=== PATIENT | female | born 1975 | race Caucasian/White ===

== ENCOUNTER 2016-10-07 08:56 | Emergency (ER) | payer BC ==
[~2016-10-07 08:56] MED LIST: ALLE10TA11 PO; EXCETAB80 PO; INDE80CA PO; REME30TA PO; imitrex IM
--- NOTE | 2016-10-07 09:36 | EDDOCDS ---
Physician Documentation [facility] Name: Alyson Lozoya Age: 41 yrs Sex: Female : 1975 Arrival Date: 10/07/2016 Time: 08:56 Bed Triage 1 Private MD: Disposition: 10/07/16 09:28 Discharged to Home/Self Care. Impression: Acute maxillary sinusitis. - Condition is Stable. - Discharge Instructions: Sinusitis, Adult. - Prescriptions for Prednisone 20 mg Oral Tablet - take 1 tablet by ORAL route once daily for 5 days; 5 tablet. Bactrim DS 800- 160 mg Oral Tablet - take 1 tablet by ORAL route every 12 hours for 10 days; 20 tablet. - Medication Reconciliation form. - Follow up: Emergency Department; When: As needed; Reason: Worsening of conditions. Follow up: Private Physician; When: Call to arrange an appointment; Reason: Wound/Symptom Recheck, Recheck today's complaints, Continuance of care. - Problem is an ongoing problem. - Symptoms are unchanged. Historical: - Allergies: cats; - Home Meds: 1. Imitrex 6 mg/0.5 mL Sub-Q soln as needed 2. Claritin 10 mg Oral tab 1 tab once daily 3. Benadryl 25 mg Oral cap nightly - PMHx: Chronic sinus infections; Migraines; - PSHx: Tubal ligation; Cholecystectomy; ectopic ; - Social history: Smoking status: Patient states was never smoker of tobacco. No barriers to communication noted, The patient speaks fluent Hungarian, Speaks appropriately for age. - Family history: Not pertinent. - : The pt / caregiver states he / she is not on anticoagulants. Home medication list is obtained from the patient. - Exposure Risk Screening:: None identified. 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 4 in. (162.56 cm) (R); Pain 5/10; 09:08 Body Mass Index 31.75 (83.91 kg, 162.56 cm) mlb1 MDM: 09:34 [facility] Payment Agreement was scanned into [employer] and attached to record. hs2 09:34 Financial registration complete. hs2 Signatures: Tapan Chavez, RN RN Felton Perez, RN RN mlb1 Enrique March PA-C PA-C cc10 Demetra Perez, Reg Reg hs2 The chart was reviewed and I authenticate all verbal orders and agree with the evaluation and treatment provided.Attachments: 09:34 [facility] Payment Agreement hs2 MTDD
--- NOTE | 2016-10-07 09:36 | EDDOCDS ---
Nurse's Notes [facility] [place] Name: Alyson Lozoya Age: 41 yrs Sex: Female : 1975 Arrival Date: 10/07/2016 Time: 08:56 Bed Triage 1 Private MD: Diagnosis: Acute maxillary sinusitis Presentation: 10/07 09:06 Presenting complaint: Patient states: Sinus pain and pressure began a week ago. Adult mlb1 Sepsis Screening: The patient does not have new or worsening altered mentation. Patient's respiratory rate is less than 22. Systolic blood pressure is greater than 100. Patient has a qSOFA score of 0- Negative Sepsis Screen. Suicide/Homicide risk assessment- the patient denies having any suicidal and/or homicidal ideations and does not present with any other emotional, behavioral or mental health complaints. Status: Patient is not a social service worker or dependent. Transition of care: patient was not received from another setting of care. 09:06 Acuity: FAITH Level 4 mlb1 09:06 Method Of Arrival: Walkin/Carried/Asstd mlb1 Triage Assessment: 09:08 General: Appears in no apparent distress, Behavior is appropriate for age, cooperative. mlb1 Pain: Location: forehead, right cheek and left cheek Pain currently is 5 out of 10 on a pain scale. HIV screening NA for this visit Offered previously. 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 Imitrex 6 mg/0.5 mL Sub-Q soln as needed 2. Claritin 10 mg Oral tab 1 tab once daily 3. Benadryl 25 mg Oral cap nightly - PMHx: Chronic sinus infections; Migraines; - PSHx: Tubal ligation; Cholecystectomy; ectopic ; - Social history: Smoking status: Patient states was never smoker of tobacco. No barriers to communication noted, The patient speaks fluent Kazakh, Speaks appropriately for age. - Family history: Not pertinent. - : The pt / caregiver states he / she is not on anticoagulants. Home medication list is obtained from the patient. - Exposure Risk Screening:: None identified. Screenin:22 Screening information is obtained from the patient. Fall risk: No risks identified. mlb1 Assistance ADL's: requires no assistance with activities of daily living. Abuse/DV Screen: The patient / caregiver reports he/she is: not in a situation that causes fear, pain or injury. Nutritional screening: No deficits noted. Advance Directives: Currently, there is no health care proxy. home support is adequate. Assessment: 09:34 The patient / caregiver is instructed regarding the plan of care and ED course. [facility] Physical assessment to be completed by DELANO/DIONNE. Vital Signs: 09:08 BP 122 / 73; Pulse 82; Resp 16; Temp 99.0(TE); Pulse Ox 98% on R/A; Weight 83.91 kg mlb1 (R); Height 5 ft. 4 in. (162.56 cm) (R); Pain 5/10; 09:08 Body Mass Index 31.75 (83.91 kg, 162.56 cm) mlb1 Vitals: 09:08 Log In Time: October 07, 2016 at 09:00. mlb1 ED Course: 08:58 Patient visited by Florencio Hernandez. jp5 08:58 Patient moved to Waiting jp5 08:59 Enrique March [facility] cc10 08:59 Dar Vee MD is Attending Physician. cc10 09:07 Triage Initiated mlb1 09:07 Patient moved to Triage 1 cc10 09:09 Patient visited by Felton Romero RN. mlb1 09:10 Patient visited by Enrique March PA-C. cc10 09:10 Patient visited by Enrique March PA-C. cc10 09:23 The patient / caregiver is instructed regarding the plan of care and ED course. mlb1 09:23 No IV's were initiated during this patient's visit. No procedures done that require mlb1 assistance. 09:34 [facility] Payment Agreement was scanned into [employer] and attached to record. hs2 09:35 Patient has correct armband on for positive identification. dwg Order Results: There are currently no results for this order. Outcome: 09:28 Discharge ordered by Provider. cc10 09:34 The following High Risk Discharge criteria are identified: None. Discharged to home dwg ambulatory, with family. Condition: good Condition: stable. No special radiology studies were completed. 09:35 Discharge Assessment: patient administered narcotics - no. Property sent home with dwg patient. 09:35 Patient left the ED. dwg Signatures: Tapan Chavez, RN RN dwg Felton Romero RN RN mlb1 Enrique March, NEW PAKevenC cc10 Florencio Hernandez jp5 Demetra Perez, Reg Reg hs2 MTDD
--- NOTE | 2016-10-09 10:36 | EDDOCDS ---
Physician Documentation [facility] Name: Alyson Lozoya Age: 41 yrs Sex: Female : 1975 Arrival Date: 10/07/2016 Time: 08:56 Bed Triage 1 Private MD: Disposition: 10/07/16 09:28 Discharged to Home/Self Care. Impression: Acute maxillary sinusitis. - Condition is Stable. - Discharge Instructions: Sinusitis, Adult. - Prescriptions for Prednisone 20 mg Oral Tablet - take 1 tablet by ORAL route once daily for 5 days; 5 tablet. Bactrim DS 800- 160 mg Oral Tablet - take 1 tablet by ORAL route every 12 hours for 10 days; 20 tablet. - Medication Reconciliation form. - Follow up: Emergency Department; When: As needed; Reason: Worsening of conditions. Follow up: Private Physician; When: Call to arrange an appointment; Reason: Wound/Symptom Recheck, Recheck today's complaints, Continuance of care. - Problem is an ongoing problem. - Symptoms are unchanged. Historical: - Allergies: cats; - Home Meds: 1. Imitrex 6 mg/0.5 mL Sub-Q soln as needed 2. Claritin 10 mg Oral tab 1 tab once daily 3. Benadryl 25 mg Oral cap nightly - PMHx: Chronic sinus infections; Migraines; - PSHx: Tubal ligation; Cholecystectomy; ectopic ; - Social history: Smoking status: Patient states was never smoker of tobacco. No barriers to communication noted, The patient speaks fluent Belarusian, Speaks appropriately for age. - Family history: Not pertinent. - : The pt / caregiver states he / she is not on anticoagulants. Home medication list is obtained from the patient. - Exposure Risk Screening:: None identified. COMPLIANCE SPEC: 10/07 09:08 LMP 09/30/2016 mlb1 Vital Signs: 09:08 BP 122 / 73; Pulse 82; Resp 16; Temp 99.0(TE); Pulse Ox 98% on R/A; Weight 83.91 kg / mlb1 184.99 lbs (R); Height 5 ft. 4 in. (162.56 cm) (R); Pain 5/10; 09:08 Body Mass Index 31.75 (83.91 kg, 162.56 cm) mlb1 MDM: 09:34 [facility] Payment Agreement was scanned into [employer] and attached to record. hs2 09:34 Financial registration complete. hs2 13:32 T-Sheet-- Draft Copy was scanned into [employer] and attached to record. [facility] Signatures: Tapan Chavez RN RN Felton Perez RN RN mlb1 Enrique March PA-C PAOmer cc10 Demetra Perez, Reg Reg hs2 Zulema Valle [facility] The chart was reviewed and I authenticate all verbal orders and agree with the evaluation and treatment provided.Attachments: 09:34 [facility] Payment Agreement hs2 13:32 T-Sheet-- Draft Copy [facility] Chart Complete MTDD
--- NOTE | 2016-10-09 10:36 | EDDOCDS ---
Nurse's Notes [facility] Name: Alyson Lozoya Age: 41 yrs Sex: Female : 1975 Arrival Date: 10/07/2016 Time: 08:56 Bed Triage 1 Private MD: Diagnosis: Acute maxillary sinusitis Presentation: 10/07 09:06 Presenting complaint: Patient states: Sinus pain and pressure began a week ago. Adult mlb1 Sepsis Screening: The patient does not have new or worsening altered mentation. Patient's respiratory rate is less than 22. Systolic blood pressure is greater than 100. Patient has a qSOFA score of 0- Negative Sepsis Screen. Suicide/Homicide risk assessment- the patient denies having any suicidal and/or homicidal ideations and does not present with any other emotional, behavioral or mental health complaints. Status: Patient is not a steam service inspector or dependent. Transition of care: patient was not received from another setting of care. 09:06 Acuity: FAITH Level 4 mlb1 09:06 Method Of Arrival: Walkin/Carried/Asstd mlb1 Triage Assessment: 09:08 General: Appears in no apparent distress, Behavior is appropriate for age, cooperative. mlb1 Pain: Location: forehead, right cheek and left cheek Pain currently is 5 out of 10 on a pain scale. HIV screening NA for this visit Offered previously. 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 Imitrex 6 mg/0.5 mL Sub-Q soln as needed 2. Claritin 10 mg Oral tab 1 tab once daily 3. Benadryl 25 mg Oral cap nightly - PMHx: Chronic sinus infections; Migraines; - PSHx: Tubal ligation; Cholecystectomy; ectopic ; - Social history: Smoking status: Patient states was never smoker of tobacco. No barriers to communication noted, The patient speaks fluent Cypriot, Speaks appropriately for age. - Family history: Not pertinent. - : The pt / caregiver states he / she is not on anticoagulants. Home medication list is obtained from the patient. - Exposure Risk Screening:: None identified. Screenin:22 Screening information is obtained from the patient. Fall risk: No risks identified. mlb1 Assistance ADL's: requires no assistance with activities of daily living. Abuse/DV Screen: The patient / caregiver reports he/she is: not in a situation that causes fear, pain or injury. Nutritional screening: No deficits noted. Advance Directives: Currently, there is no health care proxy. home support is adequate. Assessment: 09:34 The patient / caregiver is instructed regarding the plan of care and ED course. [facility] Physical assessment to be completed by DELANO/DIONNE. Vital Signs: 09:08 BP 122 / 73; Pulse 82; Resp 16; Temp 99.0(TE); Pulse Ox 98% on R/A; Weight 83.91 kg mlb1 (R); Height 5 ft. 4 in. (162.56 cm) (R); Pain 5/10; 09:08 Body Mass Index 31.75 (83.91 kg, 162.56 cm) mlb1 Vitals: 09:08 Log In Time: October 07, 2016 at 09:00. mlb1 ED Course: 08:58 Patient visited by Florencio Hernandez. jp5 08:58 Patient moved to Waiting jp5 08:59 Enrique March [facility]-C [facility] cc10 08:59 Dar Vee MD is Attending Physician. cc10 09:07 Triage Initiated mlb1 09:07 Patient moved to Triage 1 cc10 09:09 Patient visited by Felton Romero RN. mlb1 09:10 Patient visited by Enrique March PA-C. cc10 09:10 Patient visited by Enrique March PA-C. cc10 09:23 The patient / caregiver is instructed regarding the plan of care and ED course. mlb1 09:23 No IV's were initiated during this patient's visit. No procedures done that require mlb1 assistance. 09:34 [facility] Payment Agreement was scanned into [employer] and attached to record. hs2 09:35 Patient has correct armband on for positive identification. [facility] 13:32 T-Sheet-- Draft Copy was scanned into [employer] and attached to record. [facility] Order Results: There are currently no results for this order. Outcome: 09:28 Discharge ordered by Provider. cc10 09:34 The following High Risk Discharge criteria are identified: None. Discharged to home dwg ambulatory, with family. Condition: good Condition: stable. No special radiology studies were completed. 09:35 Discharge Assessment: patient administered narcotics - no. Property sent home with [facility] patient. 09:35 Patient left the ED. [facility] Signatures: Tapan Chavez, RN RN Felton Perez RN RN mlb1 Enrique March PA-C PAOmer cc10 Florencio Hernandez jp5 Demetra Perez, Reg Reg hs2 Tori, Zulema Chart Complete MTDD
--- NOTE | 2016-10-09 10:36 | EDDOCDS ---
Physician Documentation [facility] Name: Alyson Lozoya Age: 41 yrs Sex: Female : 1975 Arrival Date: 10/07/2016 Time: 08:56 Bed Triage 1 Private MD: Disposition: 10/07/16 09:28 Discharged to Home/Self Care. Impression: Acute maxillary sinusitis. - Condition is Stable. - Discharge Instructions: Sinusitis, Adult. - Prescriptions for Prednisone 20 mg Oral Tablet - take 1 tablet by ORAL route once daily for 5 days; 5 tablet. Bactrim DS 800- 160 mg Oral Tablet - take 1 tablet by ORAL route every 12 hours for 10 days; 20 tablet. - Medication Reconciliation form. - Follow up: Emergency Department; When: As needed; Reason: Worsening of conditions. Follow up: Private Physician; When: Call to arrange an appointment; Reason: Wound/Symptom Recheck, Recheck today's complaints, Continuance of care. - Problem is an ongoing problem. - Symptoms are unchanged. Historical: - Allergies: cats; - Home Meds: 1. Imitrex 6 mg/0.5 mL Sub-Q soln as needed 2. Claritin 10 mg Oral tab 1 tab once daily 3. Benadryl 25 mg Oral cap nightly - PMHx: Chronic sinus infections; Migraines; - PSHx: Tubal ligation; Cholecystectomy; ectopic ; - Social history: Smoking status: Patient states was never smoker of tobacco. No barriers to communication noted, The patient speaks fluent Pashto, Speaks appropriately for age. - Family history: Not pertinent. - : The pt / caregiver states he / she is not on anticoagulants. Home medication list is obtained from the patient. - Exposure Risk Screening:: None identified. 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 4 in. (162.56 cm) (R); Pain 5/10; 09:08 Body Mass Index 31.75 (83.91 kg, 162.56 cm) mlb1 MDM: 09:34 [facility] Payment Agreement was scanned into [employer] and attached to record. hs2 09:34 Financial registration complete. hs2 13:32 T-Sheet-- Draft Copy was scanned into [employer] and attached to record. [facility] Signatures: Tapan Chavez RN RN Felton Perez RN RN mlb1 Enrique March PA-C PAOmer cc10 Demetra Perez, Reg Reg hs2 Zulema Valle [facility] The chart was reviewed and I authenticate all verbal orders and agree with the evaluation and treatment provided.Attachments: 09:34 [facility] Payment Agreement hs2 13:32 T-Sheet-- Draft Copy [facility] Chart Complete MTDD
== END 2016-10-07 09:35 | disposition home or self-care (01) ==
LOC: M ED 08:56
DX: J32.9 Chronic sinusitis, unspecified (principal); G43.909 Migraine, unspecified, not intractable, without status migrainosus; Z79.899 Other long term (current) drug therapy; J30.81 Allergic rhinitis due to animal (cat) (dog) hair and dander

== ENCOUNTER 2016-11-07 18:08 | Emergency (ER) | payer BC ==
[~2016-11-07] VITALS: Ht 162.6 cm; Wt 83.9 kg
[2016-11-07] MEDS ORDERED: IMIT6INJ SC (18:35)
[2016-11-07] MEDS ORDERED: KETOROLAC 60 MG/2 ML VIAL (J1885) IM ONE (21:45)
[2016-11-07 23:06] VITALS: BP 117/74
== END 2016-11-07 23:20 | disposition home or self-care (01) ==
LOC: M ED 19:23
DX: B34.9 Viral infection, unspecified (principal); J02.0 Streptococcal pharyngitis; F41.9 Anxiety disorder, unspecified; J30.81 Allergic rhinitis due to animal (cat) (dog) hair and dander
CPT/HCPCS: 87804; 87880; 96372; 99282; J1885

== ENCOUNTER → 2017-06-27 | Outpatient (CLI) | payer BC ==
[~2017-06-27] MED LIST changes: +IMIT6INJ SC
[2017-06-27 10:47] LABS: MEAN CORPUSCULAR HEMOGLOBIN 31.2 pg (27.0-33.0); MEAN CORPUSCULAR HGB CONC 33.1 g/dl (32.0-36.5); MEAN CORPUSCULAR VOLUME 94.3 fl (80.0-96.0); PLATELET COUNT, AUTOMATED 309 10^3/uL (150-450); WHITE BLOOD COUNT 7.5 10^3/uL (4.0-10.0)
--- NOTE | 2017-06-27 11:10 | REP ---
Clinical: Hypertension . Comparison: 11/03/2015 . Technique: PA and lateral. Findings: The mediastinum and cardiac silhouette are normal. The lung blakely are clear and without acute consolidation, effusion, or pneumothorax. The skeletal structures are intact and normal. Impression: 1. No acute cardiopulmonary process. Signed by Jayson Franco MD 06/27/2017 11:01 A
--- NOTE | 2017-06-27 11:29 | REP ---
Clinical: Pain. Comparison: 07/29/2005 . Technique: AP, lateral, flexion/extension, bilateral oblique, swimmers and open-mouth views. Findings: Alignment and lordosis is maintained. There is no evidence for acute fracture / compression injury or subluxation. No significant degenerative changes are appreciated. Oblique views demonstrate patent neural foramen. Open mouth view demonstrates normal C1-C2 articulation and odontoid process. Impression: Normal, age-appropriate cervical spine series. Signed by Jayson Franco MD 06/27/2017 11:21 A
[2017-06-27 11:30] LABS: ALBUMIN 3.6 GM/DL (3.2-5.2); ALBUMIN/GLOBULIN RATIO 1.03 (1.00-1.93); ALKALINE PHOSPHATASE 72 U/L (45-117); ALT/SGPT 40 U/L (12-78); ANION GAP 8 MEQ/L (8-16); AST/SGOT 20 U/L (7-37); BILIRUBIN,TOTAL 0.3 MG/DL (0.2-1.0); BLOOD UREA NITROGEN 13 MG/DL (7-18); CALCIUM LEVEL 8.4 MG/DL (8.5-10.1); CARBON DIOXIDE LEVEL 27 MEQ/L (21-32); CHLORIDE LEVEL 106 MEQ/L (98-107); CHOLESTEROL LEVEL 174 MG/DL (<200); CREATININE FOR GFR 0.55 MG/DL (0.55-1.02); GLOMERULAR FILTRATION RATE > 60.0 (>58); GLUCOSE, FASTING 111 MG/DL (70-105); SODIUM LEVEL 141 MEQ/L (136-145); THYROXINE (T4) 11.6 UG/DL (4.5-12.0); TOTAL PROTEIN 7.1 GM/DL (6.4-8.2); TRIGLYCERIDES LEVEL 134 MG/DL (<150)
--- NOTE | 2017-06-28 13:36 | ECGEPIP ---
Stationary ECG Study [facility] Test Date: 2017-06-27 Pat Name: GRACIELA KEARNEY Department: Room: - Gender: F Training Administrator: COLLIN : 1975 Requested By: Spencer Helms Order Number: [id number] Reading MD: Feliciano Beard Measurements Intervals Nesbit Rate: 66 P: 30 WV: 192 QRS: 20 QRSD: 87 T: 43 QT: 386 QTc: 405 Interpretive Statements SINUS RHYTHM Q WAVE NOTED IN THE INFERIOR LEADS Prior tracing on 07/26/2013 at 11:19:48. Sinus tachycardia was then noted Electronically Signed On 06-28-2017 13:35:53 EST by Feliciano Beard
== END ==
LOC: M LAB 10:14
PROVIDERS: ATTEND Family Medicine
DX: I10 Essential (primary) hypertension (principal)

== ENCOUNTER 2018-05-26 13:28 | Emergency (ER) | payer OTHER | END 2018-05-26 15:35 | disposition home or self-care (01) | LOC: M ED 13:28 | DX: Z00.00 Encounter for general adult medical examination without abnormal findings (principal); A48.8 Other specified bacterial diseases; G43.909 Migraine, unspecified, not intractable, without status migrainosus; K44.9 Diaphragmatic hernia without obstruction or gangrene | CPT/HCPCS: 99283 ==

== ENCOUNTER 2018-06-04 17:26 | Emergency (ER) | payer OTHER ==
[2018-06-04] MEDS: KETOROLAC 60 MG/2 ML VIAL (J1885) IM (21:15)
== END 2018-06-04 21:34 | disposition home or self-care (01) ==
LOC: M ED 17:26
DX: S96.912A Strain of unspecified muscle and tendon at ankle and foot level, left foot, initial encounter (principal); X50.1XXA Overexertion from prolonged static or awkward postures, initial encounter; Y92.9 Unspecified place or not applicable; Y93.9 Activity, unspecified; Y99.0 Civilian activity done for income or pay; I10 Essential (primary) hypertension; G43.909 Migraine, unspecified, not intractable, without status migrainosus; J30.89 Other allergic rhinitis
CPT/HCPCS: J1885

== ENCOUNTER → 2019-12-22 | Outpatient (CLI) | payer BC ==
[~2019-12-22] MED LIST changes: +NAPR-837 PO; +PROZ10CA7 PO
== END ==
LOC: M LABSMTC 13:19
PROVIDERS: ATTEND Family Medicine
DX: Z11.59 Encounter for screening for other viral diseases (principal); Z20.828 Contact with and (suspected) exposure to other viral communicable diseases
CPT/HCPCS: C9803; U0003

== ENCOUNTER 2020-06-07 20:41 | Emergency (ER) | payer BC ==
[~2020-06-07] VITALS: Ht 162.6 cm; Wt 94.2 kg
[~2020-06-07 20:41] MED LIST changes: -PROZ10CA7 PO
[2020-06-07 20:42] VITALS: BP 138/64
[2020-06-07] MEDS ORDERED: PROZ10CA7 PO (20:50)
[2020-06-07] MEDS ORDERED: BOOSTRIX/ADACEL VACCINE (DIPHTH/PERTUSS/ACELL/TETANUS) 0.5ML SYR IM ONE (21:00)
[2020-06-07] MEDS ORDERED: LIDOCAINE 2% MDV 20ML VIAL SC ONE (21:00)
== END 2020-06-07 22:03 | disposition home or self-care (01) ==
LOC: M ED 20:41
DX: S61.411A Laceration without foreign body of right hand, initial encounter (principal); W26.8XXA Contact with other sharp object(s), not elsewhere classified, initial encounter; Y92.090 Kitchen in other non-institutional residence as the place of occurrence of the external cause; Y93.G1 Activity, food preparation and clean up; Y99.8 Other external cause status; G43.909 Migraine, unspecified, not intractable, without status migrainosus; F41.9 Anxiety disorder, unspecified; F32.9 Major depressive disorder, single episode, unspecified; K44.9 Diaphragmatic hernia without obstruction or gangrene; J30.81 Allergic rhinitis due to animal (cat) (dog) hair and dander; Z79.899 Other long term (current) drug therapy; Z79.1 Long term (current) use of non-steroidal anti-inflammatories (NSAID); Z23 Encounter for immunization

== ENCOUNTER → 2020-09-20 | Outpatient (CLI) | payer SELFPAY ==
[~2020-09-20] MED LIST changes: +PROZ10CA7 PO
== END ==
LOC: M LABSMTC 09:46
PROVIDERS: ATTEND Pediatrics
DX: Z20.828 Contact with and (suspected) exposure to other viral communicable diseases (principal)

== ENCOUNTER → 2021-08-07 | Outpatient (CLI) | payer MEDICAID | LOC: M LABSMTC 13:14 | PROVIDERS: ATTEND Pediatrics | DX: Z11.52 Encounter for screening for COVID-19 (principal) ==

== ENCOUNTER 2022-06-12 11:19 | Emergency (ER) | payer BC, MEDICAID ==
[~2022-06-12] VITALS: Ht 162.6 cm; Wt 92.7 kg
[2022-06-12 14:20] LABS: BASO % 0.2 % (0.0-1.0); HEMATOCRIT 38.5 % (36.0-47.0); HEMOGLOBIN 12.9 g/dl (12.0-15.5); LYMPH # 0.6 10^3/uL (1.5-5.0); LYMPH % 5.8 % (24.0-44.0); MEAN CORPUSCULAR HEMOGLOBIN 31.6 pg (27.0-33.0); MEAN CORPUSCULAR HGB CONC 33.5 g/dl (32.0-36.5); MEAN CORPUSCULAR VOLUME 94.4 fl (80.0-96.0); MONO # 0.4 10^3/uL (0.0-0.8); MONO % 3.7 % (2.0-8.0); NEUTROPHILS # 9.3 10^3/uL (1.5-8.5); NEUTROPHILS % 89.1 % (36.0-66.0); PLATELET COUNT, AUTOMATED 201 10^3/uL (150-450); RED BLOOD COUNT 4.08 10^6/uL (4.00-5.40); WHITE BLOOD COUNT 10.4 10^3/uL (4.0-10.0)
[2022-06-12 14:54] LABS: BLOOD UREA NITROGEN 15 MG/DL (7-18); CALCIUM LEVEL 9.2 MG/DL (8.5-10.1); CARBON DIOXIDE LEVEL 25 MEQ/L (21-32); CHLORIDE LEVEL 100 MEQ/L (98-107); CREATININE FOR GFR 0.86 MG/DL (0.55-1.30); GLOMERULAR FILTRATION RATE > 60.0 (>58); GLUCOSE, FASTING 130 MG/DL (70-100); POTASSIUM SERUM 3.7 MEQ/L (3.5-5.1); SODIUM LEVEL 134 MEQ/L (136-145)
[2022-06-12 15:33] VITALS: BP 131/67
[2022-06-12] MEDS ORDERED: KETOROLAC TROMETHAMINE 10 MG TAB PO ONE (18:20)
[2022-06-12] MEDS ORDERED: KETO10TAB PO ×2 (18:22→19:16)
[2022-06-12] MEDS ORDERED: FLON27.5 NARES ×2 (18:22→19:16)
[2022-06-12] MEDS ORDERED: AMOX875T2 PO ×2 (18:22→19:16)
== END 2022-06-12 18:44 | disposition home or self-care (01) ==
LOC: M ED 11:19
DX: J01.40 Acute pansinusitis, unspecified (principal); R05.9 Cough, unspecified; G43.909 Migraine, unspecified, not intractable, without status migrainosus; E66.9 Obesity, unspecified; F32.A Depression, unspecified; F41.9 Anxiety disorder, unspecified; J30.81 Allergic rhinitis due to animal (cat) (dog) hair and dander; Z79.899 Other long term (current) drug therapy

== ENCOUNTER → 2022-06-22 | Outpatient (REF) | payer BC ==
[~2022-06-22] MED LIST changes: +AMOX875T2 PO; +FLON27.5 NARES; +KETO10TAB PO
== END ==
LOC: M SFHCPLAZ 14:15
PROVIDERS: ATTEND Family Medicine
DX: Z12.11 Encounter for screening for malignant neoplasm of colon (principal); R73.03 Prediabetes; Z83.49 Family history of other endocrine, nutritional and metabolic diseases; K59.00 Constipation, unspecified; E66.9 Obesity, unspecified

== ENCOUNTER → 2022-06-27 | Outpatient (REF) | payer BC ==
[2022-06-27 16:26] LABS: ALT/SGPT 44 U/L (7.0-40); BILIRUBIN,TOTAL 0.3 MG/DL (0.3-1.2); BLOOD UREA NITROGEN 14 MG/DL (9-23); CARBON DIOXIDE LEVEL 24 MMOL/L (20-31); CHLORIDE LEVEL 105 MMOL/L (98-107); CHOLESTEROL LEVEL 177 MG/DL (<200); CHOLESTEROL RISK RATIO 4.49 (<5); CREATININE FOR GFR 0.54 MG/DL (0.55-1.30); GLOMERULAR FILTRATION RATE > 60.0 (>58); GLUCOSE, FASTING 91 MG/DL (60-100); HDL CHOLESTEROL 39.4 MG/DL (>40); LDL CHOLESTEROL 112.8 MG/DL (<100); NON-HDL-C 138 MG/DL; POTASSIUM SERUM 4.7 MMOL/L (3.5-5.1); SODIUM LEVEL 139 MMOL/L (136-145); TRIGLYCERIDES LEVEL 124 MG/DL (<150)
[2022-06-27 16:48] LABS: CALCIUM LEVEL 9.9 MG/DL (8.5-10.1)
[2022-06-27 17:25] LABS: HEMOGLOBIN A1c 5.2 % (4.0-6.0)
== END ==
LOC: M SFHCPLAZ 10:02
PROVIDERS: ATTEND Family Medicine
DX: Z12.11 Encounter for screening for malignant neoplasm of colon (principal); R73.03 Prediabetes; Z83.49 Family history of other endocrine, nutritional and metabolic diseases; K59.00 Constipation, unspecified; E66.9 Obesity, unspecified

== ENCOUNTER → 2022-09-14 | Outpatient (REF) | payer BC | LOC: M SFHCPLAZ 16:44 | PROVIDERS: ATTEND Physician Assistant | DX: J01.90 Acute sinusitis, unspecified (principal) ==

== ENCOUNTER → 2022-10-17 | Outpatient (CLI) | payer BC | LOC: M PLAIMG 16:44 | PROVIDERS: ATTEND Physician Assistant | DX: M25.511 Pain in right shoulder (principal) ==

== ENCOUNTER → 2022-11-02 | Outpatient (CLI) | payer BC | LOC: M PLARAD 09:44 | PROVIDERS: ATTEND Physician Assistant | DX: M25.571 Pain in right ankle and joints of right foot (principal) ==

== ENCOUNTER 2023-02-04 01:53 | Emergency (ER) | payer BC ==
[~2023-02-04] VITALS: Ht 162.6 cm; Wt 83.5 kg
[2023-02-04] MEDS ORDERED: DOXY100C3 (02:05)
[2023-02-04] MEDS ORDERED: SEMA2PEN (02:05)
[2023-02-04] MEDS ORDERED: CELE1CAP9 (02:05)
[2023-02-04] MEDS ORDERED: METOCLOPRAMIDE INJ 10MG/2ML VIAL IV ONE (03:20)
[2023-02-04] MEDS ORDERED: KETOROLAC 30 MG/ML 1ML VIAL IV ONE (03:20)
[2023-02-04] MEDS ORDERED: diphenhydrAMINE 50MG/ML VIAL IV ONE (03:20)
[2023-02-04] MEDS ORDERED: ACETAMINOPHEN 1000MG 100ML IV BAG IV ONE (03:20)
[2023-02-04] MEDS ORDERED: NS 1,000 ML IV ONE (03:20)
[2023-02-04] MEDS ORDERED: VALPROATE SOD INJ 1,000 MG in D5W 50 ML IV ONE (04:50)
[2023-02-04] MEDS ORDERED: MORPHINE 4 MG/ML 1ML VIAL IV PRN (06:45)
[2023-02-04] MEDS ORDERED: MAG SULF 1GM/100ML (MAG RUN) 1 GM in IV 1 EA IV ONE (07:55)
[2023-02-04] MEDS ORDERED: SUCRALFATE SUSP 1GM/10ML UD PO ONE (09:55)
[2023-02-04 10:30] VITALS: BP 104/54; TEMP 97.4; O2SAT 96
== END 2023-02-04 10:49 | disposition home or self-care (01) ==
LOC: M ED 01:53
DX: G43.909 Migraine, unspecified, not intractable, without status migrainosus (principal); K59.00 Constipation, unspecified; R73.01 Impaired fasting glucose; Z79.899 Other long term (current) drug therapy
CPT/HCPCS: 96365; 96366; 96367; 96375; 99284; J0131; J1100; J1200; J1885; J2765; J3475

== ENCOUNTER → 2023-03-07 | Outpatient (CLI) | payer BC ==
[~2023-03-07] MED LIST changes: +CELE1CAP9; +DOXY100C3; +SEMA2PEN
[2023-03-07 10:57] LABS: APPEARANCE, URINE CLEAR (CLEAR); BACTERIA, URINE AUTO NEGATIVE (NEGATIVE); BILIRUBIN, URINE AUTO NEGATIVE (NEGATIVE); BLOOD, URINE BLOOD 1+ (NEGATIVE); COLOR, URINE YELLOW (YELLOW); GLUCOSE, URINE (UA) AUTO NEGATIVE (NEGATIVE); KETONE, URINE AUTO NEGATIVE (NEGATIVE); LEUKOCYTE ESTERASE, URINE AUTO NEGATIVE (NEGATIVE); NITRITE, URINE AUTO NEGATIVE (NEGATIVE); PROTEIN, URINE AUTO NEGATIVE (NEGATIVE); RBC, URINE AUTO 2 /HPF (0-3); SPECIFIC GRAVITY URINE AUTO 1.018 (1.002-1.035); UROBILINOGEN, URINE AUTO 0.2 mg/dL (0.0-2.0); WBC, URINE AUTO 0 /HPF (0-3)
[2023-03-07 10:58] LABS: MUCUS, URINE SMALL (NEGATIVE); SQUAMOUS EPITHELIAL CELL UR AU 3 /HPF (0-6)
[2023-03-07 11:05] LABS: BASO % 0.4 % (0.0-1.0); EOS # 0.1 10^3/uL (0.0-0.5); EOS % 1.4 % (0.0-3.0); HEMATOCRIT 36.5 % (36.0-47.0); HEMOGLOBIN 11.9 g/dl (12.0-15.5); LYMPH % 22.1 % (24.0-44.0); MEAN CORPUSCULAR HEMOGLOBIN 31.1 pg (27.0-33.0); MEAN CORPUSCULAR HGB CONC 32.6 g/dl (32.0-36.5); MEAN CORPUSCULAR VOLUME 95.3 fl (80.0-96.0); MONO # 0.9 10^3/uL (0.0-0.8); MONO % 9.9 % (2.0-8.0); NEUTROPHILS % 65.8 % (36.0-66.0); PLATELET COUNT, AUTOMATED 314 10^3/uL (150-450); RED BLOOD COUNT 3.83 10^6/uL (4.00-5.40); WHITE BLOOD COUNT 9.2 10^3/uL (4.0-10.0)
[2023-03-07 11:21] LABS: INR 0.86; PARTIAL THROMBOPLASTIN TIME 27.5 SECONDS (24.8-34.2); PROTHROMBIN TIME 11.9 SECONDS (12.5-14.5)
[2023-03-07 11:24] LABS: ALBUMIN 3.8 G/DL (3.2-5.2); ALKALINE PHOSPHATASE 87 U/L (46-116); ALT/SGPT 32 U/L (7.0-40); AST/SGOT 15 U/L (<34); BILIRUBIN,TOTAL 0.6 MG/DL (0.3-1.2); BLOOD UREA NITROGEN 13 MG/DL (9-23); CALCIUM LEVEL 8.8 MG/DL (8.5-10.1); CARBON DIOXIDE LEVEL 26 MMOL/L (20-31); CHLORIDE LEVEL 105 MMOL/L (98-107); CREATININE FOR GFR 0.59 MG/DL (0.55-1.30); GLOMERULAR FILTRATION RATE > 60.0 (>51); GLUCOSE, FASTING 71 MG/DL (60-100); POTASSIUM SERUM 3.8 MMOL/L (3.5-5.1); SODIUM LEVEL 140 MMOL/L (136-145); TOTAL PROTEIN 6.8 G/DL (5.7-8.2)
== END ==
LOC: M PLALAB 09:05
PROVIDERS: ATTEND Family Medicine
DX: Z01.810 Encounter for preprocedural cardiovascular examination (principal)

== ENCOUNTER → 2023-10-02 | Outpatient (CLI) | payer BC ==
[~2023-10-02] MED LIST changes: +CELE0.09; -CELE1CAP9
== END ==
LOC: M WHC 07:29
PROVIDERS: ATTEND Family Medicine
DX: Z12.31 Encounter for screening mammogram for malignant neoplasm of breast (principal)

== ENCOUNTER → 2023-11-05 | Outpatient (CLI) | payer BC ==
[2023-11-05 19:12] LABS: ALKALINE PHOSPHATASE 79 U/L (46-116); ALT/SGPT 34 U/L (7.0-40); AST/SGOT 21 U/L (<34); BILIRUBIN,TOTAL 0.4 MG/DL (0.3-1.2); BLOOD UREA NITROGEN 15 MG/DL (9-23); CALCIUM LEVEL 9.7 MG/DL (8.5-10.1); CARBON DIOXIDE LEVEL 28 MMOL/L (20-31); CHLORIDE LEVEL 107 MMOL/L (98-107); CHOLESTEROL LEVEL 160 MG/DL (<200); CHOLESTEROL RISK RATIO 4.12 (<5); CREATININE FOR GFR 0.66 MG/DL (0.55-1.30); GLOMERULAR FILTRATION RATE > 60.0 (>51); GLUCOSE, FASTING 70 MG/DL (60-100); HDL CHOLESTEROL 38.8 MG/DL (>40); LDL CHOLESTEROL 85.4 MG/DL (<100); NON-HDL-C 121.2 MG/DL; POTASSIUM SERUM 4.1 MMOL/L (3.5-5.1); SODIUM LEVEL 138 MMOL/L (136-145); TOTAL PROTEIN 6.8 G/DL (5.7-8.2); TRIGLYCERIDES LEVEL 179 MG/DL (<150)
== END ==
LOC: M PLALAB 15:39
PROVIDERS: ATTEND Family Medicine
DX: R73.03 Prediabetes (principal)

== ENCOUNTER 2024-09-02 07:02 | Emergency (ER) | payer BC, MEDICAID ==
[~2024-09-02] VITALS: Ht 162.6 cm; Wt 91.8 kg
[2024-09-02] MEDS: METOCLOPRAMIDE INJ 10MG/2ML VIAL IV ONE (09:59)
[2024-09-02] MEDS: diphenhydrAMINE 50MG/ML VIAL IV ONE (09:59)
[2024-09-02] MEDS: NS (Normal Saline) 0.9% 1,000 ML IV ONE (09:59)
[2024-09-02] MEDS: KETOROLAC 30 MG/ML 1ML VIAL IV ONE (10:00)
[2024-09-02] MEDS: ACETAMINOPHEN *IV* 1,000 MG in IV 1 EA IV ONE (10:28)
[2024-09-02 12:16] LABS: KETONE, URINE AUTO RFX TRACE mg/dL (NEGATIVE); LEUKOCYTE ESTERASE UR AUTO RFX NEGATIVE (NEGATIVE); MUCUS, URINE RFX SMALL (NEGATIVE); NITRITE, URINE AUTO RFX NEGATIVE (NEGATIVE); RBC, URINE AUTO RFX 0 /HPF (0-3); SQUAM EPITHELIAL CELL UR AURFX 2 /HPF (0-6); WBC, URINE AUTO RFX 2 /HPF (0-3)
[2024-09-02] MEDS ORDERED: ONDA-282 PO (12:33)
[2024-09-02 12:52] VITALS: BP 101/65; TEMP 98.1; O2SAT 100
== END 2024-09-02 12:58 | disposition home or self-care (01) ==
LOC: M ED 07:02
DX: G43.909 Migraine, unspecified, not intractable, without status migrainosus (principal); B34.9 Viral infection, unspecified; Z91.09 Other allergy status, other than to drugs and biological substances; Z79.4 Long term (current) use of insulin; Z79.899 Other long term (current) drug therapy
CPT/HCPCS: 81001; 87486; 87581; 87633; 87798; 96365; 96375; 99284; J0131; J1200; J1885; J2765

== ENCOUNTER 2025-03-18 11:41 | Emergency (ER) | payer MEDICAID, OTHER ==
[~2025-03-18] VITALS: Ht 162.6 cm; Wt 91.3 kg
[~2025-03-18 11:41] MED LIST changes: +ONDA-282 PO; +PROZ10CA11 PO; -PROZ10CA7 PO
[2025-03-18] MEDS ORDERED: IBUP-1022 (11:47)
[2025-03-18] MEDS ORDERED: PHEN30CA21 (11:47)
[2025-03-18] MEDS ORDERED: AMOX875T2 PO (12:36)
[2025-03-18 12:38] VITALS: BP 138/85; TEMP 97.2; O2SAT 98
== END 2025-03-18 12:43 | disposition home or self-care (01) ==
LOC: M ED 11:41
DX: S09.22XA Traumatic rupture of left ear drum, initial encounter (principal); Y92.019 Unspecified place in single-family (private) house as the place of occurrence of the external cause; Y93.9 Activity, unspecified; Y99.9 Unspecified external cause status; Z91.09 Other allergy status, other than to drugs and biological substances; Z79.2 Long term (current) use of antibiotics; Z79.1 Long term (current) use of non-steroidal anti-inflammatories (NSAID); Z79.899 Other long term (current) drug therapy

== ENCOUNTER → 2025-04-08 | Outpatient (CLI) | payer OTHER ==
[~2025-04-08] MED LIST changes: +IBUP600T42; +PHEN30CA21
== END ==
LOC: M RAD 08:05
PROVIDERS: ATTEND Otolaryngology
DX: J32.0 Chronic maxillary sinusitis (principal)

== ENCOUNTER → 2025-04-22 | Outpatient (CLI) | payer OTHER ==
[2025-04-22 17:18] LABS: APPEARANCE, URINE HAZY (CLEAR); BACTERIA, URINE AUTO NEGATIVE (NEGATIVE); BILIRUBIN, URINE AUTO NEGATIVE (NEGATIVE); BLOOD, URINE BLOOD NEGATIVE (NEGATIVE); GLUCOSE, URINE (UA) AUTO NEGATIVE (NEGATIVE); KETONE, URINE AUTO NEGATIVE (NEGATIVE); LEUKOCYTE ESTERASE, URINE AUTO NEGATIVE (NEGATIVE); MUCUS, URINE MODERATE (NEGATIVE); NITRITE, URINE AUTO NEGATIVE (NEGATIVE); PROTEIN, URINE AUTO NEGATIVE (NEGATIVE); RBC, URINE AUTO 3 /HPF (0-3); SPECIFIC GRAVITY URINE AUTO 1.020 (1.002-1.035); SQUAMOUS EPITHELIAL CELL UR AU 3 /HPF (0-6); UROBILINOGEN, URINE AUTO 0.2 mg/dL (0.0-2.0); WBC, URINE AUTO 2 /HPF (0-3)
[2025-04-22 17:28] LABS: INR 0.87
== END ==
LOC: M PLALAB 15:48
PROVIDERS: ATTEND Podiatrist
DX: M79.672 Pain in left foot (principal); S93.129A Dislocation of metatarsophalangeal joint of unspecified toe(s), initial encounter; X58.XXXA Exposure to other specified factors, initial encounter; Y92.9 Unspecified place or not applicable; Y93.9 Activity, unspecified; Y99.9 Unspecified external cause status

== ENCOUNTER → 2025-04-22 | Outpatient (CLI) | payer OTHER ==
[2025-04-22 16:54] LABS: BASO # 0.1 10^3/uL (0.0-0.2); BASO % 0.9 % (0.0-1.0); EOS # 0.3 10^3/uL (0.0-0.5); EOS % 4.1 % (0.0-3.0); LYMPH # 2.0 10^3/uL (1.5-5.0); LYMPH % 28.8 % (24.0-44.0); MONO # 0.9 10^3/uL (0.0-0.8); MONO % 13.1 % (2.0-8.0); NEUTROPHILS # 3.6 10^3/uL (1.5-8.5); NEUTROPHILS % 52.8 % (36.0-66.0); PLATELET COUNT, AUTOMATED 302 10^3/uL (150-450)
[2025-04-22 17:33] LABS: ALT/SGPT 38 U/L (7.0-40); AST/SGOT 24 U/L (<34); CALCIUM LEVEL 9.8 MG/DL (8.5-10.1); CARBON DIOXIDE LEVEL 31 MMOL/L (20-31); CHLORIDE LEVEL 106 MMOL/L (98-107); CREATININE FOR GFR 0.64 MG/DL (0.55-1.30); GLOMERULAR FILTRATION RATE > 90.0 (>51); POTASSIUM SERUM 4.3 MMOL/L (3.5-5.1); SODIUM LEVEL 146 MMOL/L (136-145)
== END ==
LOC: M PLALAB 15:44
PROVIDERS: ATTEND Family Medicine
DX: G43.009 Migraine without aura, not intractable, without status migrainosus (principal)